=== PATIENT | male | born 1950 | race Caucasian/White ===

== ENCOUNTER 2016-06-15 05:40 | Day surgery (SDC) | payer MEDICARE, OTHER ==
[2016-06-05 14:57] LABS: HEMOGLOBIN 12.9 g/dL (13.6-17.8)
[2016-06-05 14:58] LABS: HEMATOCRIT 40.4 % (40.0-51.0)
[2016-06-05 15:41] LABS: CALCIUM, SERUM 9.8 MG/DL (8.5-10.4); CHLORIDE, SERUM 98 MMOL/L (96-112); CO2 (CARBON DIOXIDE) 32 MMOL/L (24-34); CREATININE 0.85 MG/DL (0.70-1.30); GFR AFRICAN AMERICAN 104 ML/MIN (>=60); GFR NON AFRICAN AMERICAN 90 ML/MIN (>=60); SODIUM, SERUM 139 MMOL/L (135-148)
[2016-06-05 15:42] LABS: BUN (BLOOD UREA NITROGEN) 13 MG/DL (6-23); GLUCOSE, SERUM 351 MG/DL (60-99); POTASSIUM, SERUM 4.7 MMOL/L (3.5-5.3)
[~2016-06-15 05:40] MED LIST: ACCUNEB INH; ACET500CAP PO; ALBUTEROL5 INH; ALTA125 PO; AMBIEN CR12.5 MG PO; ASAB PO; AUG875 PO; AVODART PO; BACDS PO; BENTYL20 PO; CARTIA XT180 MG/24 PO; CENTRUM TAB1 TAB PO; CHANTIX1 PO; COREG3 PO; DILT-XR180 MG PO; DOXEPIN HCL100 MG PO; DOXEPIN HCL150 MG PO; DSS PO; FLOMAX0.4 M1 PO; FLOMAX4 PO; FLONASE NAS; FLORASTOR250 MG PO; FLOVENT110 INH; FLUCON1 PO; FOSAMAX70 MG PO; GLUCOPHAGE1000 MG PO; GLUCOTRO10 PO; GLUCPH PO; HUMALOGPEN SC; HUMI PO; IRON325 MG PO; KLONO1 PO; KLOR-CON M2020 MEQ PO; L20 PO; L40 PO; L80 PO; LANTUS SC; LEVAQUIN5T PO; LEVAQUIN750 MG PO; LEVEMFLXPN SC; LIDODERM TOP; LOM PO; LORT7 PO; LORTAB 5 PO; LORTAB10 PO; LYRICA100 MG PO; MEDROL8 MG PO; MELA3 PO; MICRO-K10 MEQ PO; MSCONT100 PO; MSCONT15 PO; MSCONT60 PO; MSCONTIN PO; MUCINEX1200 MG PO; MUCINEX600 MG; MUCINEX600 MG PO; NEUR100 PO; NEUR300 PO; NEUR600 PO; NICODERM C14 MG/24 H TOP; NITROSTAT0.4 MG SL; NORCO1 TA2 PO; NORCO1 TAB PO; NOVOLOG SC; NOVOLOGMIX SC; NOVOPEN SC; NTG150 SL; OMNICEF300 PO; OXYGEN NAS; P10; P10 PO; P20 PO; PAREGORIC TINCT5 ML PO/LIQ; PEP20 PO; PLAVIX PO; PRAVACHOL40 MG PO; PRIN20 PO; PROAIR HFA INH; PROTONIX PO; PROVENT20 INH; PROVHFA INH; PT UNABLE TO RECALL; SEPTRA1 TAB PO; SINEQUAN 75 MG75 MG PO; SPIRIVA INH; STERAPRED DS10 MG PO; SYMBICORT 160/41 INH INH; TAZTIA XT PO; TIAZA1 PO; TOPXL25 PO; TOUJEO SC; TOUJEO SQ; TRICOR145 PO; VENTOLIN HFA INH; ZITHROMAX500 MG PO; ZOL100 PO
== END 2016-06-15 11:47 | disposition home or self-care (01) ==
LOC: SDC 05:40
PROVIDERS: Ophthalmology
PROC: 08RJ3JZ Replacement of Right Lens with Synthetic Substitute, Percutaneous Approach (ICD-10-PCS; principal; 2016-06-15 07:45)
DX: H25.11 Age-related nuclear cataract, right eye (principal); J44.9 Chronic obstructive pulmonary disease, unspecified; E11.9 Type 2 diabetes mellitus without complications; I25.10 Atherosclerotic heart disease of native coronary artery without angina pectoris; E78.00 Pure hypercholesterolemia, unspecified; I50.9 Heart failure, unspecified; M19.90 Unspecified osteoarthritis, unspecified site; F32.9 Major depressive disorder, single episode, unspecified; F41.9 Anxiety disorder, unspecified; Z98.890 Other specified postprocedural states; Z95.1 Presence of aortocoronary bypass graft; Z90.49 Acquired absence of other specified parts of digestive tract
CPT/HCPCS: 80048; 82962; 85014; 85018; 93005; 94640; J2405; J3010